=== PATIENT | female | born 1990 | race African-American/Black ===

== ENCOUNTER 2019-10-22 11:38 | Emergency (ER) | payer OTHER ==
[~2019-10-22] VITALS: Ht 170.2 cm; Wt 102.1 kg
[2019-10-22] MEDS ORDERED: NAPROSYN500 MG PO (12:58)
[2019-10-22] MEDS ORDERED: NORCO 5-325 TA1 EAC1 PO (12:58)
[2019-10-22 14:21] VITALS: BP 145/95
[2019-10-24] MEDS ORDERED: NAPROSYN500 M1 PO (14:50)
[2019-10-25] MEDS ORDERED: PERCOCET 7.5-31 EAC1 PO (14:43)
[2019-10-25] MEDS ORDERED: LITE COAT ASPI325 MG PO (14:44)
== END 2019-10-22 14:22 | disposition home or self-care (01) ==
LOC: ER 11:38
DX: S82.855A Nondisplaced trimalleolar fracture of left lower leg, initial encounter for closed fracture (principal); F17.210 Nicotine dependence, cigarettes, uncomplicated; W01.0XXA Fall on same level from slipping, tripping and stumbling without subsequent striking against object, initial encounter; Y93.01 Activity, walking, marching and hiking; Y92.89 Other specified places as the place of occurrence of the external cause; Y99.8 Other external cause status

== ENCOUNTER → 2019-10-24 | Outpatient (CLI) | payer OTHER ==
[~2019-10-24] MED LIST: LITE COAT ASPI325 MG PO; NAPROSYN500 M1 PO; NAPROSYN500 MG PO; NORCO 5-325 TA1 EAC1 PO; PERCOCET 7.5-31 EAC1 PO
== END ==
LOC: LAB 11:59
PROVIDERS: ATTEND Student in an Organized Health Care Education/Training Program
DX: Z01.818 Encounter for other preprocedural examination (principal); Z11.59 Encounter for screening for other viral diseases

== ENCOUNTER → 2019-10-25 | Day surgery (SDC) | payer OTHER ==
[~2019-10-25] VITALS: Ht 170.2 cm; Wt 102.1 kg
--- NOTE | ~2019-10-25 | O ---
[facility] [place] [address] OPERATIVE REPORT Name: LEE SUNSHINE Room #: REG [facility]#: [id number] Admission: 10/25/19 Attend Phys: Delroy Patton MD Discharge: Date of : 88 Report #: [id number] THIS REPORT FOR: cc: MICHAEL - No family physician/PCP MICHAEL - No family physician/PCP Delroy Patton MD ~ CC: [facility] physician/PCP Delroy Patton DATE OF SERVICE: 10/25/2019 PREOPERATIVE DIAGNOSES: 1. Left ankle trimalleolar ankle fracture. 2. Left ankle syndesmosis disruption. POSTOPERATIVE DIAGNOSES: 1. Left ankle trimalleolar ankle fracture. 2. Left ankle syndesmosis disruption. PROCEDURES: 1. Left ankle open reduction and internal fixation of trimalleolar [place] [address] 2. Left ankle open reduction and internal fixation of syndesmosis, [place] [address] SURGEON: Dr. Delroy Patton. ANESTHESIA: General. ESTIMATED BLOOD LOSS: Minimal. DRAINS: No drains. TOURNIQUET TIME: One hour. DESCRIPTON OF PROCEDURE: The patient was brought to the operating room where she was placed under general anesthesia. Once under adequate general anesthesia, her left lower extremity was prepped and draped in a sterile manner. The extremity was elevated, exsanguinated and a tourniquet placed to 300 mmHg. A lateral incision over the fibular fracture, which was proximal to the ankle joint was made approximately 10 cm in length. Dissection was carried down to the fracture site, which was highly comminuted. This was then subsequently reduced and the bridging plate was then placed across the fracture site with a 10-hole one-third tubular plate from the [employer] set. Three screws proximal to the fracture and 2 screws distal were then placed. Excellent fixation was achieved with this in an external alignment. The fibula was brought out the [facility] [address] [place] [address] OPERATIVE REPORT Name: LEE SUNSHINE Room #: REG [facility].#: [id number] Admission: 10/25/19 Attend Phys: Delroy Patton MD Discharge: Date of : 88 Report #: [id number] right. The syndesmosis was unstable. Therefore, through a separate hole distally, a 4.5 mm cannulated screw was placed across the syndesmosis for fixation of this. Excellent reduction of the syndesmosis was achieved in this manner. We then proceeded medially and a medial incision 4 cm in length was made over the medial malleolar fracture. Dissection was carried down to the fracture site, any hematoma was evacuated from the fracture site as well and the tissue was removed from the fracture site and subsequent reduction of the fracture was achieved with a bone reduction tenaculum. Two 4.0 cannulated screws were placed under fluoroscopic guidance for fixation of the medial malleolar fracture. Excellent fixation with excellent alignment was achieved at the fracture site. Fluoroscopy verified a satisfactory reduction. There was a posterior malleolar fracture. Reduction of this fracture was achieved with a bone reduction tenaculum placed from the lateral ankle utilizing fluoroscopy for guidance. Reduction of the posterior malleolar fracture and the joint was achieved with the bone reduction tenaculum. Fixation across this fracture was achieved with a single 4.0 cannulated screw placed under fluoroscopic guidance. Excellent fixation and alignment was achieved as verified under fluoroscopy. The wounds were then irrigated copiously and closed with 2-0 Vicryl in subcutaneous tissues and devyn for the skin. The wounds were dressed with Xeroform, 4 x 4s, and sterile soft compressive dressing along with a short leg cast was placed. Tourniquet was let down at approximately 1 hour. Toes were pink and warm with good capillary refill. There were no complications from the procedure. The patient tolerated the procedure well and went to the recovery room without incident. By: [id number] Delroy Patton MD /pooja
[2019-10-25 12:58] VITALS: BP 158/106
[2019-10-25 15:43] VITALS: BP 158/106
== END | disposition home or self-care (01) ==
LOC: OR 12:24
PROVIDERS: ATTEND Orthopaedic Surgery Foot and Ankle Surgery
DX: S82.852A Displaced trimalleolar fracture of left lower leg, initial encounter for closed fracture (principal); S93.432A Sprain of tibiofibular ligament of left ankle, initial encounter; M25.572 Pain in left ankle and joints of left foot; F17.210 Nicotine dependence, cigarettes, uncomplicated; Z98.890 Other specified postprocedural states; Z79.899 Other long term (current) drug therapy; X58.XXXA Exposure to other specified factors, initial encounter; Y93.89 Activity, other specified; Y92.89 Other specified places as the place of occurrence of the external cause; Y99.8 Other external cause status
CPT/HCPCS: 50010; 50101; 50313; 50386; 50445; 50679; 51122; 51131; 51412; 52120; 56524; 56525; 56667; 57091; 62110; 62900; 70005